=== PATIENT | female | born 1965 | race Caucasian/White ===

== ENCOUNTER 2025-05-03 13:23 | Emergency (ER) | payer BC, SELFPAY ==
[2025-05-03 13:43] VITALS: BP 157/88
[2025-05-03 15:08] LABS: Urine Character Clear (Clear)
--- NOTE | 2025-05-03 15:11 | ED.GENMED ---
History of Present Illness
<Galilea Schulz PA-C - Last Filed: 05/03/25 21:07>
General
Chief Complaint: Abdominal Pain
Source: patient
Exam Limitations: none
Time Seen by Provider: 05/03/25 14:55
Nursing documentation reviewed up to this point in time: agreed with
History of Present Illness
History of Present Illness:
Patient is a healthy 59-year-old female who presents to the emergency department for evaluation of right lower quadrant abdominal pain. She describes a 'shocklike' pain, similar to a spasm occurring intermittently over the past few days in her
right lower abdomen. The pain radiates into her right mid abdomen. Symptoms only last for about 30 seconds at a time. She denies any associated fever, chills, nausea/vomiting, anorexia, or urinary symptoms. She is having normal bowel movements.
She was concerned the symptoms might be appendicitis prompting evaluation in the emergency department.
She does have a past history of ovarian cyst and has had a left-sided oophorectomy.
Patient lives in [place] however has been up visiting her sister for the past few years.
Review of Systems
<Galilea Schulz PA-C - Last Filed: 05/03/25 21:07>
Review of Systems
Allergies reviewed?: Yes
All Other Systems: ROS reviewed and negative except as documented in HPI and ROS
Phy Exam
<Galilea Schulz PA-C - Last Filed: 05/03/25 21:07>
Physical Exam
Physical Exam:
Vitals: Hypertensive, otherwise vital signs stable. Afebrile
General: Patient is very well appearing, no acute distress. Nontoxic appearing
Skin: Warm and dry, no rashes or lesions
Head: Normocephalic, atraumatic
Eyes: Sclera nonicteric.
Throat: Protecting airway
Neck: Normal ROM, no cervical spine tenderness, no meningismus
Cardiac: Regular rate and rhythm, no murmurs.
Pulm: Normal respiratory effort, no wheezes, rales, rhonchi heard on exam
.
Abdomen: Mild tenderness in right lower quadrant/right pelvic region. No rebound or guarding. No CVA tenderness.
Extremities: No evidence of cyanosis or edema
Neuro: AAOx3. Grossly intact.
Psychiatric: Normal affect.
Course
<Galilea Schulz PA-C - Last Filed: 05/03/25 21:07>
Orders/Labs/Results
Orders:
Orders
05/03/25 14:17
Urinalysis Urgent
Date Specimen was Collected: 05/03/25
Time Specimen was Collected: 13:47
05/03/25 15:11
0.9% Sodium Chloride 1000 ml [Nss] 1,000 ml IV BOLUS
Pelvis & Transvaginal US [US Pelvis W Transvag Combined] Urgent
Comment:
Reason For Exam: RLQ / pelvic pain
US Abdomen - Appendix Only Urgent
Comment:
Reason For Exam: RLQ pain
05/03/25 15:16
Renal Only US [US Renal Only W/O Bladder] Urgent
Comment:
Reason For Exam: RLQ pain
05/03/25 15:32
Complete Blood Count/With Diff Urgent
Comprehensive Metabolic Panel Urgent
Lipase Urgent
Abnormal Lab Results
05/03/25
15:32
Carbon Dioxide 31 H mmol/L
(22-30)
Glucose 105 H mg/dl
(70-99)
Calcium 11.4 H mg/dl
(8.4-10.2)
05/03/25 15:32
05/03/25 15:32
Vital Signs
Initial and Last Documented VS:
Initial Vital Signs
Temp Pulse Resp BP Pulse Ox
98.3 F 65 20 157/88 100
05/03/25 13:43 05/03/25 13:43 05/03/25 13:43 05/03/25 13:43 05/03/25 13:43
Last Documented Vital Signs
Temp Pulse Resp BP Pulse Ox
98.3 F 65 20 157/88 100
05/03/25 13:43 05/03/25 13:43 05/03/25 13:43 05/03/25 13:43 05/03/25 15:11
<Josue Tubbs MD - Last Filed: 05/03/25 15:32>
Orders/Labs/Results
Orders:
Orders
05/03/25 14:17
Urinalysis Urgent
Date Specimen was Collected: 05/03/25
Time Specimen was Collected: 13:47
05/03/25 15:11
0.9% Sodium Chloride 1000 ml [Nss] 1,000 ml IV BOLUS
Pelvis & Transvaginal US [US Pelvis W Transvag Combined] Urgent
Comment:
Reason For Exam: RLQ / pelvic pain
US Abdomen - Appendix Only Urgent
Comment:
Reason For Exam: RLQ pain
05/03/25 15:16
Renal Only US [US Renal Only W/O Bladder] Urgent
Comment:
Reason For Exam: RLQ pain
05/03/25 15:32
Complete Blood Count/With Diff Urgent
Comprehensive Metabolic Panel Urgent
Lipase Urgent
Abnormal Lab Results
05/03/25
15:32
Carbon Dioxide 31 H mmol/L
(22-30)
Glucose 105 H mg/dl
(70-99)
Calcium 11.4 H mg/dl
(8.4-10.2)
05/03/25 15:32
05/03/25 15:32
Vital Signs
Initial and Last Documented VS:
Initial Vital Signs
Temp Pulse Resp BP Pulse Ox
98.3 F 65 20 157/88 100
05/03/25 13:43 05/03/25 13:43 05/03/25 13:43 05/03/25 13:43 05/03/25 13:43
Last Documented Vital Signs
Temp Pulse Resp BP Pulse Ox
98.3 F 65 20 157/88 100
05/03/25 13:43 05/03/25 13:43 05/03/25 13:43 05/03/25 13:43 05/03/25 15:11
<Galilea Schulz PA-C - Last Filed: 05/03/25 21:07>
MDM/Problems Addressed
Differential Diagnosis Includes:
Not limited to: Muscle strain/spasm, constipation, renal colic, appendicitis, ovarian cyst/torsion, etc.
MDM/Problems Addressed:
59-year-old female with intermittent right lower quadrant/pelvic discomfort over the past few days. Symptoms described as a spasm lasting 30 seconds. Not associated with fever, vomiting, urinary symptoms, changes in bowel habits. Patient mildly
hypertensive with otherwise stable vital signs. Physical exam as above.
Differential as above. Symptoms very atypical for appendicitis. She does have history of ovarian cysts on the left side requiring a left-sided oophorectomy in the past�consider possible ovarian etiology although less likely in postmenopausal
status. Other considerations were urinary etiologies.
Lengthy discussion with patient regarding imaging options. She would prefer to avoid CT scans if possible. Given patient is afebrile with relatively low suspicion for acute appendicitis or infectious process based on benign abdominal exam�Will
start with basic labs and obtain UA and ultrasounds of appendix, pelvis, and kidneys.
Update: CBC without any leukocytosis. Chemistry reveals hypercalcemia. Urine unremarkable. Ultrasounds reviewed. Appendix not visualized. Uterine fibroids noted�possibly rated to symptoms however she states these have been present for a while.
Renal ultrasound reveals no abnormalities on right side her redoes notes mild collecting system dilation on left side which is nonspecific. No evidence of infection on UA.
Workup in ED unremarkable. Unclear etiology of symptoms. Patient has remained stable without pain. Very low suspicion for acute appendicitis or other infectious process. Shared decision making with patient regarding discharge home with close
monitoring versus proceeding with CT scan. Patient would prefer discharge home. I did make patient aware of her elevated calcium level. Advised her to stay well-hydrated and have labs repeated with primary care when she returns home. Very strict
return precautions discussed. Patient comfortable with plan.
Chronic conditions affecting care:
N/A
Acute Exacerbation and/or Progression of Chronic Illness:
N/A
<Galilea Schulz PA-C - Last Filed: 05/03/25 21:07>
*Radiology
Radiology exam reviewed: radiology read reviewed
*Pulse Oximetry
SaO2: 100
Oxygen Mode of Delivery: Room air
Patient hypoxic: no
*EKG
Interpreted by ED Provider?: NA
*Sales Floor Associate Interpretation
Rate: Sales Floor Associate- N/A
*Critical Care Note
Total Time (30-74mins, 75-104mins- exclusive of procedures): Not Applicable
ED Attending Note
<Galilea Schulz PA-C - Last Filed: 05/03/25 21:07>
-
Portions of this chart may have been created with voice recognition software.� Occasional wrong word or��sound alike� substitutions may have occurred due to the inherent limitations of voice recognition software.
<Josue Tubbs MD - Last Filed: 05/03/25 15:32>
ED Attending Note
Patient seen and examined by attending physician: Yes
I performed the substantive portion of visit, reviewed & personally made and approve the management plan that is documented in note by myself or YUSEF.: Yes
ED Attending Note:
59-year-old female presenting with episodes of very sharp brief right pelvic pain. Has been going on for to 5 days. 2 to 3/day. Currently feels perfectly fine. No fever no anorexia no flank or back pain some urinary frequency but states she is
urinating a lot. No change in bowel movements.
On exam patient is nontoxic in no distress. Abdomen is totally nontender. No rebound or guarding no mass or hernia. No CVA tenderness. Warm and dry. Perfusing well. Gait is normal.
Impression patient really points more towards the right pelvic area. Very brief discomfort lasting 30 seconds. Very atypical for appendicitis. Would highly doubt torsion ovarian. Could theoretically be an intermittent torsion but unlikely. Not
describe any vaginal discharge no fever. Lengthy discussion with the patient concerning ultrasound versus CT scan. With a very low clinical suspicion for appendicitis will check a white count and ultrasound the appendix. If her white count is
elevated we will change the CT. If not we will hold on CT for this reasoning. As for her ovary we will do an ultrasound of the ovary. Also check her kidney for hydronephrosis.
Discharge Plan
Departure
Patient Disposition: Home (Routine Discharge)
Date of Disposition: 05/03/25
Time of Disposition: 19:52
Patient with high blood pressure during this ER visit?: Yes
Condition: Good
Discharge Problem:
Intermittent right lower quadrant abdominal pain, Hypercalcemia
Instructions: Abdominal Pain, BLOOD PRESSURE
Referrals:
NONE,* [Family Provider, Internal Medicine]
Activity Restrictions/Additional Instructions:
RETURN TO THE EMERGENCY DEPARTMENT WITH ANY FEVER, CHILLS, PERSISTENT/WORSENING ABDOMINAL PAIN, PERSISTENT LOSS OF APPETITE, DIFFICULTIES URINATING, SEVERE BACK PAIN, WORSENING CURRENT SYMPTOMS, OR ANY OTHER CONCERNS
- Your lab work showed an elevated calcium level. Please stay well-hydrated. You should have repeat lab work with your primary care for further workup to ensure this resolves.
- Follow-up with primary care for further evaluation/management to ensure your symptoms are improving
Monitor your symptoms closely and return to the emergency department with any acute worsening/new symptoms or any other concerns
Interventions
Interventions:
*Risk Screen - Suicide Last Done: 05/03/25 13:46
*General Assessment Last Done: 05/03/25 15:00
*Neglect/Abuse Screening Last Done: 05/03/25 13:46
*ED- Fall Risk Assessment Last Done: 05/03/25 15:00
*ED COVID-19 Vaccine History Last Done: 05/03/25 15:00
*ED Influenza Vaccine History Last Done: 05/03/25 15:00
*Nursing Disposition Last Done: 05/03/25 20:21
SR-[id number]-[id number] Assessment Last Done: 05/03/25 15:00
Discharge Date and Time
Discharge Date/Time: 05/03/25 20:21
Print Language: PARAGUAYAN
[2025-05-03 15:42] LABS: Hematocrit 40.1 % (37.0-47.0); Hemoglobin 13.3 g/dL (12.0-16.0); Mean Corp Hgb Conc. 33.2 g/dL (33.0-37.0); Mean Corpuscular Volume 85.3 fL (81.0-99.0); Nucleated Red Blood Cells % 0 %; Platelet Count 289 10^3/uL (130-400); Red Cell Dist. Width 13.0 % (11.5-14.5)
[2025-05-03] MEDS: NSS 1000 IV (15:46)
[2025-05-03 16:06] LABS: ALT (SGPT) 28 U/L (0-35); AST (SGOT) 27 U/L (14-36); Albumin 4.9 g/dl (3.5-5.0); Alkaline Phosphatase 98 U/L (38-126); Blood Urea Nitrogen 15 mg/dl (7-17); Calcium 11.4 mg/dl (8.4-10.2); Carbon Dioxide 31 mmol/L (22-30); Chloride 102 mmol/L (98-107); Glucose 105 mg/dl (70-99); Lipase 85 U/L (23-300); Potassium 4.5 mmol/L (3.5-5.1); Sodium 142 mmol/L (135-145); Total Protein 7.8 g/dl (6.3-8.2); eGFR > 60.00
== END 2025-05-03 20:21 | disposition home or self-care (01) ==
LOC: EMR 13:23
PROVIDERS: Emergency Medicine; EMERGENCY PHYSICIAN Emergency Medicine
DX: R10.31 Right lower quadrant pain (principal); E83.52 Hypercalcemia; D25.9 Leiomyoma of uterus, unspecified; Z90.721 Acquired absence of ovaries, unilateral
CPT/HCPCS: 99284; 96360; 76705; 76775; 76830; 76856; 80053; 81003; 83690; 85025